=== PATIENT | female | born 1965 | race Caucasian/White ===

== ENCOUNTER 2023-10-22 18:05 | Inpatient (IN) | payer OTHER, MEDICAID ==
[~2023-10-22] VITALS: Ht 154.9 cm; Wt 110.7 kg
[2023-10-22 18:31] VITALS: BP 156/62; PULSE 62; RESP 18; TEMP 98.7; O2SAT 98
[2023-10-22 19:33] LABS: BASOPHILS % (AUTO) 0.7 % (0.0-2.0); EOSINOPHILS # (AUTO) 0.1 K/uL (0-0.4); EOSINOPHILS % (AUTO) 2.6 % (0.0-4.0); HEMOGLOBIN 9.8 g/dL (12.0-16.0); LYMPHOCYTES # (AUTO) 1.2 K/uL (2.5-16.5); LYMPHOCYTES % (AUTO) 23.5 % (20.5-51.1); MEAN CORPUSCULAR HEMOGLOBIN 31 pg (27-31); MEAN CORPUSCULAR HGB CONC 33 g/dL (33-37); MEAN CORPUSCULAR VOLUME 93.7 fL (80-94); MONOCYTES # (AUTO) 0.3 K/uL (0.8-1.0); MONOCYTES % (AUTO) 5.5 % (1.7-9.3); NEUTROPHILS # (AUTO) 3.6 K/uL (1.8-7.7); NEUTROPHILS % (AUTO) 67.7 % (42.2-75.2); PLATELET COUNT (AUTO) 217 K/uL (140-450); RED CELL DISTRIBUTION WIDTH 19.5 % (11.6-13.7); WHITE BLOOD COUNT (AUTO) 5.3 K/uL (4.8-10.8)
[2023-10-22 19:51] LABS: ANION GAP 13.3 (8-16); CARBON DIOXIDE 29.7 mmol/L (21-32)
[2023-10-22 19:59] LABS: CREATININE 11.5 mg/dL (0.6-1.3)
[2023-10-22] MEDS ORDERED: SODIUM ZIRCONIUM CYCLOSILICATE 10 GM POWD.PACK ONE (20:09)
[2023-10-22] MEDS: ASPIRIN 81 MG TAB.CHEW PO ONE (20:17)
[2023-10-22] MEDS: MORPHINE SULFATE 4 MG/ML SYR IVP ONE (20:19)
[2023-10-22] MEDS: SODIUM ZIRCONIUM CYCLOSILICATE 10 GM POWD.PACK PO ONE (20:22)
[2023-10-22] MEDS ORDERED: SEVE800T6 PO (21:53)
[2023-10-22] MEDS ORDERED: METO50TE2 PO (21:53)
[2023-10-22] MEDS ORDERED: INSU100S22 SUBQ (21:53)
[2023-10-22] MEDS ORDERED: AMLO10TA PO (21:53)
[2023-10-22] MEDS ORDERED: INSU-1343 SQ (21:53)
[2023-10-22] MEDS ORDERED: FURO-570 PO (21:53)
[2023-10-22] MEDS ORDERED: LUBI24SG4 PO (21:53)
[2023-10-22] MEDS ORDERED: GABA100C PO (21:53)
[2023-10-22] MEDS ORDERED: NITROGLYCERIN 0.4 MG TAB SL PRN (22:05)
[2023-10-22] MEDS ORDERED: ONDANSETRON 4 MG/2 ML VIAL IVP PRN (22:05)
[2023-10-22] MEDS ORDERED: MORPHINE SULFATE 2 MG/ML SYR IVP PRN (22:05)
[2023-10-22] MEDS ORDERED: LORazepam 1 MG TAB PO PRN (22:05)
[2023-10-22] MEDS ORDERED: ZOLPIDEM 5 MG TAB PO PRN (22:05)
[2023-10-22] MEDS ORDERED: ALUMINUM HYD/MAG/SIMETHICONE 30 ML UDC PO PRN (22:05)
[2023-10-22] MEDS ORDERED: DEXTROSE 50% 50 ML SYR IVP PRN (22:15)
[2023-10-22] MEDS: ASPIRIN 81 MG TAB.CHEW PO SCH (22:58)
[2023-10-22] MEDS: INSULIN LISPRO SLIDING SCALE 100 UNITS/ML VIAL SUBQ PRN (23:19)
[2023-10-22 23:40] VITALS: BP 147/48; PULSE 60; RESP 17; TEMP 97.3; O2SAT 100
[2023-10-22 23:46] VITALS: PULSE 60
[2023-10-23] VITALS (7 sets, daily range): BP systolic 101–140; BP diastolic 42–58; PULSE 57–70; RESP 18–19; TEMP 96.9–98.2; O2SAT 92–99
[2023-10-23] MEDS: BLOOD GLUCOSE MONITORING 1 DEV DEV FS SCH (06:30)
[2023-10-23] MEDS ORDERED: carvediloL 3.125 MG TAB PO SCH (09:00)
[2023-10-23] MEDS: DOCUSATE SODIUM 100 MG GELCAP PO SCH (10:15)
[2023-10-23] MEDS: FUROSEMIDE 40 MG TAB PO SCH (10:15)
[2023-10-23] MEDS: amLODIPine 5 MG TAB PO SCH (10:15)
[2023-10-23] MEDS: GABAPENTIN 100 MG CAP PO SCH (10:16)
[2023-10-23] MEDS: LOSARTAN 25 MG TAB PO SCH (10:16)
[2023-10-23 11:58] LABS: ANION GAP 15.5 (8-16); CALCIUM 8.8 mg/dL (8.5-10.1); CARBON DIOXIDE 29.3 mmol/L (21-32); POTASSIUM 5.8 mmol/L (3.5-5.1)
[2023-10-23 12:01] LABS: CREATININE 12.7 mg/dL (0.6-1.3)
[2023-10-23] MEDS: SIMVASTATIN 20 MG TAB PO SCH (21:18)
[2023-10-23] MEDS: METOPROLOL 50 MG TAB PO SCH (21:35)
[2023-10-23] MEDS: SEVELAMER CARBONATE 800 MG TAB PO SCH (21:35)
[2023-10-24] VITALS: BP 109/61; PULSE 66; PULSE 68; RESP 18; TEMP 97.6; O2SAT 95
[2023-10-24 04:00] VITALS: BP 129/63; PULSE 64; PULSE 65; RESP 18; TEMP 97.8; O2SAT 95
[2023-10-24 07:29] LABS: ANION GAP 11.6 (8-16); CALCIUM 8.5 mg/dL (8.5-10.1); CARBON DIOXIDE 30.5 mmol/L (21-32); POTASSIUM 5.1 mmol/L (3.5-5.1)
[2023-10-24 08:00] VITALS: BP 138/40; PULSE 64; PULSE 66; PULSE 70; RESP 18; RESP 19; TEMP 97.5; O2SAT 95
[2023-10-24 12:00] VITALS: BP 105/42; PULSE 60; PULSE 68; RESP 18; TEMP 98.3; O2SAT 98
[2023-10-24 16:00] VITALS: BP 106/38; PULSE 62; PULSE 68; RESP 18; TEMP 97.6; O2SAT 98
[2023-10-25] MEDS ORDERED: GAUZE TP SCH (01:00)
== END 2023-10-24 17:55 | disposition home or self-care (01) | DRG 313 ==
LOC: MED 18:05 → MTU 22:10
PROVIDERS: ADMIT Student in an Organized Health Care Education/Training Program; ATTEND Student in an Organized Health Care Education/Training Program
PROC: 5A1D70Z Performance of Urinary Filtration, Intermittent, Less than 6 Hours Per Day (ICD-10-PCS; principal; 2023-10-22)
DX: R07.89 Other chest pain (principal); N18.6 End stage renal disease; E87.1 Hypo-osmolality and hyponatremia; Z68.42 Body mass index [BMI] 45.0-49.9, adult; I12.0 Hypertensive chronic kidney disease with stage 5 chronic kidney disease or end stage renal disease; E66.9 Obesity, unspecified; E11.22 Type 2 diabetes mellitus with diabetic chronic kidney disease; Z99.2 Dependence on renal dialysis; Z91.158 Patient's noncompliance with renal dialysis for other reason; E87.5 Hyperkalemia; D63.1 Anemia in chronic kidney disease
CPT/HCPCS: 36415; 71045; 80048; 82948; 83880; 84484; 85025; 87081; 90935; 93005; 96374; 99285; J1644; J1815; J2270